=== PATIENT | male | born 1955 | race Caucasian/White ===

== ENCOUNTER → 2018-03-12 | Outpatient (CLI) | payer OTHER | LOC: BMCIMAGING 12:42 | PROVIDERS: ATTEND Orthopaedic Surgery | DX: M17.11 Unilateral primary osteoarthritis, right knee (principal) ==

== ENCOUNTER → 2018-03-24 | Outpatient (CLI) | payer OTHER | LOC: CIMAGING 10:20 | PROVIDERS: ATTEND Orthopaedic Surgery | DX: Z01.818 Encounter for other preprocedural examination (principal); M17.11 Unilateral primary osteoarthritis, right knee ==

== ENCOUNTER 2018-04-24 05:46 | Inpatient (IN) | payer OTHER ==
[2018-04-24] MEDS ORDERED: ROPIVACAINE 0.2% 80 MG, EPINEPHrine 0.2 MG, KETOROLAC TROMETHAMINE 30 MG, morphINE 10 M... IU ONE (06:00)
[2018-04-24] MEDS ORDERED: TRANEXAMIC ACID 1,000 MG in NS 100 ML IV ONE (06:00)
[2018-04-24] MEDS ORDERED: ACETAMINOPHEN 325 MG TAB PO ONE (06:10)
[2018-04-24] MEDS ORDERED: ceFAZolin 2 GM/DEXTROSE 100 ML IV ONE (06:10)
[2018-04-24] MEDS ORDERED: FAMOTIDINE 20 MG TAB PO ONE (06:10)
[2018-04-24] MEDS ORDERED: LR 1,000 ML IV ONE (06:12)
[2018-04-24] MEDS ORDERED: LIDOCAINE 1% 2 ML INJ ID PRN (06:12)
[2018-04-24] MEDS ORDERED: MIDAZOLAM 2 MG/2 ML VIAL IVP ONE (06:31)
--- NOTE | 2018-04-24 06:31 | PDANEPAE ---
ANE Past Medical History - Cardiovascular History Hx Hypertension: Yes Hx Arrhythmias: Yes Hx Chest Pain: No Hx Coronary Artery / Peripheral Vascular Disease: No Hx CHF / Valvular Disease: No Hx Palpitations: No Cardiovascular History Comment: occ sinus tach. loop recorder placed 11/2017. followed by [facility] cardiology- will obtain records. Records reviewed. History of sinus tachycardia. No afib. Cardiac clearance given and no need for stress test per spot washer. - Pulmonary History Hx COPD: No Hx Asthma/Reactive Airway Disease: No Hx Recent Upper Respiratory Infection: No Hx Oxygen in Use at Home: No Hx Sleep Apnea: No Sleep Apnea Screening Result - Last Documented: Positive - Neurologic History Hx Cerebrovascular Accident: No Hx Seizures: No Hx Dementia: No - Endocrine History Hx Diabetes: Yes Endocrine History Comment: type 2 - Renal History Hx Renal Disorders: Yes Renal History Comment: hx of prostate ca - Liver History Hx Hepatic Disorders: No - Neurological & Psychiatric Hx Hx Neurological and Psychiatric Disorders: No - Cancer History Hx Cancer: Yes Cancer History Comment: prostate ca 2016 with radiation - Congenital Disorder History Hx Congenital Disorders: No - GI History Hx Gastrointestinal Disorders: Yes Gastrointestinal History Comment: occ reflux- uses omeprazole - Other Health History Other Health History: wears glasses. arthritis. dry skin d/t winter - Chronic Pain History Chronic Pain: Yes (right knee) - Surgical History Prior Surgeries: loop recorder implanted- 11/29/2017. 10/13/10 left TKA with [place]. right knee scope 2005 for meniscus tear. left shoulder scope 2003. RK surgery- bilaterally in the mid s. wisdom teeth extracted after college. tonsillectomy in 1960 ANE Review of Systems Review of Systems: - Exercise capacity METS (RN): 4 METS ANE Patient History - Allergies Allergies/Adverse Reactions: No Known Allergies Allergy (Verified 04/24/18 06:17) - Home Medications Home Medications: Calcium Carbonate [Oyster Shell Calcium 500 mg (*)] 500 mg PO DAILY18 04/11/18 [ Last Taken Unknown] Carvedilol Phosphate [Coreg Cr] 80 mg PO DAILY 04/11/18 [Last Taken Unknown] Folic Acid [Folic Acid 1 MG (*)] 1 mg PO DAILY 04/11/18 [Last Taken Unknown] Herbals/Supplements -Info Only 1 ea PO DAILY 04/11/18 [Last Taken Unknown] Hydrochlorothiazide [HCTZ (*)] 25 mg PO DAILY 04/11/18 [Last Taken Unknown] Liraglutide [Victoza 3-Ganesh] 1.8 mg SQ DAILY18 04/11/18 [Last Taken Unknown] Melatonin [Melatonin 5 mg] 5 mg PO HS PRN 04/11/18 [Last Taken Unknown] Multivitamins [Multivitamin (*)] 1 each PO DAILY 04/11/18 [Last Taken Unknown] Naproxen Sodium [Aleve 220 MG (*)] 440 mg PO DAILY 04/11/18 [Last Taken Unknown] Morton-3 Fatty Acids [Fish Oil 1000 mg (*)] 1,000 mg PO DAILY 04/11/18 [Last Taken Unknown] Omeprazole 20 mg PO DAILY18 04/11/18 [Last Taken Unknown] Rosuvastatin Calcium [Crestor 10mg (RX)] 5 mg PO DAILY18 04/11/18 [Last Taken Unknown] Testapril 1 each SQ .3-4XYEAR 04/11/18 [Last Taken Unknown] cycloSPORINE 0.05% [Restasis Opht Drops(*)] 1 drop EACHEYE BID 04/11/18 [Last Taken Unknown] metFORMIN HCL [Glucophage 1000 mg] 1,000 mg PO BIDMEAL 04/11/18 [Last Taken Unknown] - Smoking Hx Smoking Status: Former smoker - Family Anes Hx Family Hx Anesthesia Complications: none ANE Labs/Vital Signs - Vital Signs Height: 180.34 cm Weight: 78.471 kg ANE Physical Exam - Airway Neck exam: FROM Mallampati Score: Class 2 Mouth exam: normal dental/mouth exam - Pulmonary Pulmonary: no respiratory distress, no rales or rhonchi, clear to auscultation - Cardiovascular Cardiovascular: regular rate and rhythym, no murmur, rub, or gallop - ASA Status ASA Status: III ANE Anesthesia Plan Anesthesia Plan: spinal
[2018-04-24] MEDS ORDERED: HYDROmorphONE/DILAUDID 2 MG/ML INJ IVP PRN (06:32)
[2018-04-24] MEDS ORDERED: ONDANSETRON 4 MG/2 ML VIAL IVP PRN ×2 (06:32→08:51)
[2018-04-24] MEDS ORDERED: NALOXONE HCL 0.4 MG/ML INJ IVP PRN (06:32)
[2018-04-24] MEDS ORDERED: LR 500 ML IV PRN (06:32)
[2018-04-24] MEDS ORDERED: MEPERIDINE 25 MG/0.5 ML AMP IVP PRN (06:32)
[2018-04-24] MEDS ORDERED: oxyCODONE IR 5 MG TAB PO PRN ×2 (06:32→08:51)
[2018-04-24] MEDS ORDERED: PHENYLEPHRINE HCL 100 MCG/ML SYR IVP PRN (06:32)
[2018-04-24] MEDS ORDERED: METOCLOPRAMIDE 10 MG/2 ML VIAL IVP PRN ×2 (06:32→08:51)
[2018-04-24] MEDS ORDERED: PROMETHAZINE HCL 25 MG/ML INJ IVP PRN ×2 (06:32→08:51)
--- NOTE | 2018-04-24 06:34 | PDIAF ---
- Diagnosis Diagnosis: right knee djd Code Status: Full Code - Medication Management Discharge Medications: electronically signed and located in the Home Medication List. - Orders Services needed: Home Care, Physical Therapy Home Care Face to Face: I certify that this patient was under my care and that I had the required [id number] encounter meeting the encounter requirements on the discharge day. My findings support the fact that the patient is homebound as defined in Home Care Face to Face Continued: CMS Chapter 7 Medicare Benefits Manual 30.1.1 , The condition of the patient is such that there exists a normal inability to leave home and consequently, leaving home would require a considerable and taxing effort. Diet Recommendation: no restrictions on diet Diet Texture: Regular Texture Diet Additional Instructions: TOTAL JOINT ARTHROPLASTY DISCHARGE INSTRUCTIONS 1. Your surgeon follows the [facility] protocol for reducing your risk of DVT (blood clots) following surgery. Medication will be ordered to prevent blood clots. A sudden increase in calf pain and/or swelling could indicate a blood clot in your leg. If this occurs, please call your surgeon or his/her call center assistant. An ultrasound of the leg may be necessary to diagnose a blood clot. If you have conditions that make you a higher risk for blood clots, your surgeon may use more aggressive ways to prevent them. Notify your surgeon if you think you are a high risk for blood clots. 2. Wear your white surgical stockings (HERNANDO hose) for 2 weeks. This decreases your swelling and may help prevent blood clots. It is ok to remove HERNANDO hose at night time to give your legs a break. 3. Swelling and bruising in the surgical leg is common. If you feel that it is excessive, please notify your surgeon. 4. Elevate your surgical leg with the ankle above the hip several times every day. Please keep the leg straight when you elevate by putting pillows under your foot. Do not put pillows under your knee. This will make being able to fully straighten more difficult. This is uncomfortable, but try to do it as much as possible. 5. For total knee replacements use compressive wrap on your knee for 3-5 days after surgery, then you can discontinue it. 6. Use a walker or crutches for 1-2 weeks. Progress your weight-bearing as tolerated. You may start to use a cane when you feel stable and safe. 7. You will receive physical therapy instructions in the hospital. Continue those exercises at home. There are additional exercises in the total joint booklet you were given before surgery. Outpatient physical therapy will begin 7- 10 days after surgery. Please schedule this in advance. 8. Use ice on your knee at least 3-5 times every day for 30 minutes. This helps reduce pain and swelling. Also use it at night before falling asleep. 9. Leave your surgical dressing in place for 2 weeks. Your dressing is water resistant, but not waterproof. Cover it with Saran Wrap or Akoii-g-Yaka before showering. You may shower as soon as you feel safe entering a shower. If you notice bleeding from your incision 2 or 3 days after surgery, please notify your surgeon. 10. Due to narcotics, decreased activity and altered diet, most patients experience constipation after surgery. Use zduy-ipo-dnoxiid stool softeners while you are on narcotics. 11. You may drive a car when you are comfortable bearing weight, have good muscular control of your leg and are off narcotics. This usually occurs 2-4 weeks after surgery, depending on which leg was operated on. 12. If there are questions not addressed here, please refer the [facility] book given for more information. If you still have questions, please contact your surgeon s office. 13. If you have a life-threatening emergency, please call 911 and go to the emergency room immediately. For non-life threatening emergencies, please call your physicians office for advice before going to the emergency room. - Follow Up Care Current Providers and Referrals: EB DAWSON [Other] Leonel Goode MD [Medical Doctor] -
--- NOTE | 2018-04-24 06:34 | PDHPUP ---
History & Physical Update H&P update statement: This history and physical update is based on an assessment of the patient which was completed after admission or registration (within 24 hours), but prior to the surgery/procedure. H&P update: no change in patient's condition since H&P completed
[2018-04-24] MEDS ORDERED: ONDANSETRON 4 MG/2 ML VIAL ONE (06:35)
[2018-04-24] MEDS ORDERED: THROMBIN (BOVINE) 5,000 UNIT VIAL TP ONE (06:35)
[2018-04-24] MEDS ORDERED: LIDOCAINE 2% 5 ML SDV ONE (06:35)
[2018-04-24] MEDS ORDERED: ROPIVACAINE HCL 150 MG/30 ML INJ ONE (06:35)
[2018-04-24] MEDS ORDERED: CALCIUM CHLORIDE 1 GM/10 ML INJ ONE (06:35)
[2018-04-24] MEDS ORDERED: PROPOFOL 200 MG/20 ML VIAL ONE (06:35)
[2018-04-24] MEDS ORDERED: ceFAZolin 1 GM/5 ML SYR ONE (06:36)
[2018-04-24] MEDS ORDERED: PROPOFOL/EMULSION 500 MG/50 ML BOTTLE IV ONE ×3 (06:36→08:28)
[2018-04-24] MEDS ORDERED: BUPIVACAINE/DEXTROSE 7.5MG/ML 2 ML SPINAL AMP SP ONE (06:48)
[2018-04-24] MEDS ORDERED: PHENYLEPHRINE HCL 100 MCG/ML SYR ONE ×2 (08:17→08:26)
[2018-04-24] MEDS ORDERED: LACTULOSE 20 GM/30 ML UDCUP PO PRN (08:51)
[2018-04-24] MEDS ORDERED: DIPHENOXYLATE/ATROPINE LOMOTIL 1 TAB PO PRN (08:51)
[2018-04-24] MEDS ORDERED: CYCLOBENZAPRINE 10 MG TAB PO PRN (08:51)
[2018-04-24] MEDS ORDERED: ONDANSETRON DISINTEGRATING 4 MG TAB PO PRN (08:51)
[2018-04-24] MEDS ORDERED: PROMETHAZINE HCL 25 MG SUPPR PR PRN (08:51)
[2018-04-24] MEDS ORDERED: POLYETHYLENE GLYCOL 3350 17 GM PKT PO PRN (08:51)
[2018-04-24] MEDS ORDERED: BISACODYL 10 MG SUPP PR PRN (08:51)
[2018-04-24] MEDS ORDERED: TEMAZEPAM 15 MG CAP PO PRN (08:51)
[2018-04-24] MEDS ORDERED: diphenhydrAMINE 25 MG CAP PO PRN (08:51)
[2018-04-24] MEDS ORDERED: MAGNESIUM HYDROXIDE 30 ML UDCUP PO PRN (08:51)
--- NOTE | 2018-04-24 08:51 | POSTOPPROG ---
Post Op Note Date of Operation: 04/24/18 Surgeon: Leonel Goode Relief Map Modeler: violeta Anesthesiologist: michelle ___ Anesthesia: Spinal Pre-op Diagnosis: right knee djd Post-op Diagnosis: same Indication: same Procedure: right tka Inf/Abcess present in the surg proc area at time of surgery?: No Depth: Deep Incisional (Fascial) EBL: 100-500
[2018-04-24] MEDS ORDERED: LR 1,000 ML IV SCH (09:00)
[2018-04-24] MEDS: fentaNYL 100 MCG/2 ML INJ IVP PRN ×3 (09:34→10:49)
[2018-04-24] MEDS ORDERED: fentaNYL 100 MCG/2 ML INJ ONE ×2 (09:34→10:46)
--- NOTE | 2018-04-24 10:20 | POSTANESTH ---
Post Anesthetic Evaluation Cardiovascular Status: Normal, Stable Respiratory Status: Normal, Stable Level of Consciousness/Mental Status: Can Participate in Eval Pain Control: Adequate, Prn Tx Ordered Nausea/Vomiting Control: Adequate, Prn Tx Ordered Complications Possibly Related to Anesthesia: Other, See Comments (Mild nose bleed from nasal trumbet placed during case.)
[2018-04-24] MEDS ORDERED: HYDROmorphONE/DILAUDID 2 MG/ML INJ ONE (10:47)
[2018-04-24] MEDS: ACETAMINOPHEN 325 MG TAB PO SCH ×2 (13:11→18:40)
--- NOTE | 2018-04-24 13:59 | PDMN ---
Medical Necessity Medical necessity: [facility] S700 knee arthroplasty: OP: TKA anticipate > 2 MN, pt with + GHAZALA, HTN, HX arrhythmias DM2, hx prostate Ca. AUTH # [id number] FOR CPT 29708. DONE IN PT
[2018-04-24] MEDS: CARVEDILOL CR 40 MG CAP PO SCH (14:05)
[2018-04-24] MEDS: cycloSPORINE 0.05% 30 DROPERETTE/BOX EACHEYE SCH (14:06)
[2018-04-24] MEDS: SENNOSIDES/DOCUSATE SODIUM TAB PO SCH ×2 (14:07→21:03)
[2018-04-24] MEDS: HYDROCHLOROTHIAZIDE 25 MG TAB PO SCH (14:17)
[2018-04-24] MEDS: TRANEXAMIC ACID 650 MG TAB PO SCH ×2 (14:18→22:33)
[2018-04-24] MEDS: ceFAZolin 2 GM/DEXTROSE 100 ML IV SCH ×2 (14:18→22:33)
[2018-04-24] MEDS ORDERED: ROSUVASTATIN CALCIUM 10 MG TAB PO SCH (18:00)
[2018-04-24] MEDS ORDERED: LIRAGLUTIDE 1.8 MG SQ SCH (18:00)
[2018-04-24] MEDS ORDERED: PANTOPRAZOLE SODIUM 40 MG TAB PO SCH (18:00)
[2018-04-24] MEDS: metFORMIN HCL 500 MG TAB PO SCH (18:40)
[2018-04-24] MEDS: FAMOTIDINE 20 MG TAB PO SCH (20:51)
[2018-04-24] MEDS: ASPIRIN 325 MG TAB PO SCH (22:34)
[2018-04-25] MEDS: cycloSPORINE 0.05% 30 DROPERETTE/BOX EACHEYE SCH ×2 (00:10→10:15)
[2018-04-25] MEDS: ACETAMINOPHEN 325 MG TAB PO SCH ×2 (01:04→05:29)
[2018-04-25] MEDS: TRANEXAMIC ACID 650 MG TAB PO SCH (05:30)
--- NOTE | 2018-04-25 06:40 | PDIAF ---
- Diagnosis Diagnosis: right knee djd Code Status: Full Code - Medication Management Discharge Medications: electronically signed and located in the Home Medication List. - Orders Services needed: Home Care, Physical Therapy Home Care Face to Face: I certify that this patient was under my care and that I had the required [id number] encounter meeting the encounter requirements on the discharge day. My findings support the fact that the patient is homebound as defined in Home Care Face to Face Continued: CMS Chapter 7 Medicare Benefits Manual 30.1.1 , The condition of the patient is such that there exists a normal inability to leave home and consequently, leaving home would require a considerable and taxing effort. Diet Recommendation: no restrictions on diet Diet Texture: Regular Texture Diet Additional Instructions: TOTAL JOINT ARTHROPLASTY DISCHARGE INSTRUCTIONS 1. Your surgeon follows the [facility] protocol for reducing your risk of DVT (blood clots) following surgery. Medication will be ordered to prevent blood clots. A sudden increase in calf pain and/or swelling could indicate a blood clot in your leg. If this occurs, please call your surgeon or his/her assistant golf course superintendent. An ultrasound of the leg may be necessary to diagnose a blood clot. If you have conditions that make you a higher risk for blood clots, your surgeon may use more aggressive ways to prevent them. Notify your surgeon if you think you are a high risk for blood clots. 2. Wear your white surgical stockings (HERNANDO hose) for 2 weeks. This decreases your swelling and may help prevent blood clots. It is ok to remove HERNANDO hose at night time to give your legs a break. 3. Swelling and bruising in the surgical leg is common. If you feel that it is excessive, please notify your surgeon. 4. Elevate your surgical leg with the ankle above the hip several times every day. Please keep the leg straight when you elevate by putting pillows under your foot. Do not put pillows under your knee. This will make being able to fully straighten more difficult. This is uncomfortable, but try to do it as much as possible. 5. For total knee replacements use compressive wrap on your knee for 3-5 days after surgery, then you can discontinue it. 6. Use a walker or crutches for 1-2 weeks. Progress your weight-bearing as tolerated. You may start to use a cane when you feel stable and safe. 7. You will receive physical therapy instructions in the hospital. Continue those exercises at home. There are additional exercises in the total joint booklet you were given before surgery. Outpatient physical therapy will begin 7- 10 days after surgery. Please schedule this in advance. 8. Use ice on your knee at least 3-5 times every day for 30 minutes. This helps reduce pain and swelling. Also use it at night before falling asleep. 9. Leave your surgical dressing in place for 2 weeks. Your dressing is water resistant, but not waterproof. Cover it with Saran Wrap or Lxust-y-Mvlj before showering. You may shower as soon as you feel safe entering a shower. If you notice bleeding from your incision 2 or 3 days after surgery, please notify your surgeon. 10. Due to narcotics, decreased activity and altered diet, most patients experience constipation after surgery. Use edgu-arr-ztajour stool softeners while you are on narcotics. 11. You may drive a car when you are comfortable bearing weight, have good muscular control of your leg and are off narcotics. This usually occurs 2-4 weeks after surgery, depending on which leg was operated on. 12. If there are questions not addressed here, please refer the [facility] book given for more information. If you still have questions, please contact your surgeon s office. 13. If you have a life-threatening emergency, please call 911 and go to the emergency room immediately. For non-life threatening emergencies, please call your physicians office for advice before going to the emergency room. - Follow Up Care Current Providers and Referrals: EB DAWSON [Other] Leonel Goode MD [Medical Doctor] -
--- NOTE | 2018-04-25 06:41 | SOAPPROG ---
SOAP Progress Note Assessment/Plan: Assessment: s/p right tka Plan:d/c home stable dvt precautions f/u at two weeks 04/25/18 06:40 Subjective: no pain no cp or sob reji po Objective: Vital Signs Temp Pulse Resp BP Pulse Ox 36.8 C 95 17 139/80 H 93 04/25/18 04:00 04/25/18 04:00 04/25/18 04:00 04/25/18 04:00 04/25/18 04:00 Laboratory Results 04/25/18 04:17 04/24/18 04/25/18 04/26/18 05:59 05:59 05:59 Intake Total 2650 Output Total 1900 Balance 750 dressing intact intact pf,df,ehl toes warm and pink neg homans anuradha xrays stable alignment,, no fx or lucency ICD10 Worksheet Patient Problems: Problems Problem Status Onset Arthritis of knee Acute - ICD10 Problem Qualifiers (1) Arthritis of knee
[2018-04-25] MEDS: ASPIRIN 325 MG TAB PO SCH (10:02)
[2018-04-25] MEDS: CARVEDILOL CR 40 MG CAP PO SCH (10:06)
[2018-04-25] MEDS: metFORMIN HCL 500 MG TAB PO SCH (10:06)
[2018-04-25] MEDS: HYDROCHLOROTHIAZIDE 25 MG TAB PO SCH ×2 (10:07→10:11)
[2018-04-25] MEDS: SENNOSIDES/DOCUSATE SODIUM TAB PO SCH (10:08)
[2018-04-25] MEDS: FAMOTIDINE 20 MG TAB PO SCH (10:12)
[2018-04-25 10:17] VITALS: BP 139/84
--- NOTE | 2018-04-25 12:00 | ASMTLACE ---
LACE Length of stay for Answers: 2 days current admission Acuity / Level of Answers: Yes Care: Did the patient have an inpatient admission? Comorbidities - select Answers: Diabetes (uncontrolled or all that apply controlled) Opioid dependence / Chronic pain Other Notes: HTN; Hx of prostate cancer # of Emergency department Answers: 0 visits in the last 6 months Score: 11 Date Signed: 04/25/2018 11:59 AM Electronically Signed By:TAJ Roe
--- NOTE | 2018-04-25 12:03 | ASDISCHSUM ---
Discharge Information Plan Status:Home with Home Health Medically Cleared to Leave: Discharge Date:04/25/2018 11:27 AM CM D/C Disposition:Home Health Service ADT D/C Disposition:Home Health Service Projected Discharge Date:04/25/2018 11:00 AM Transportation at D/C: Discharge Delay Reason: Follow-Up Date:04/25/2018 11:00 AM Discharge Slot: Final Diagnosis: Placement Information Referral Type:*Home Health Care Services Referral ID:[id number] Provider Name:[facility]) Address 1:[address] [facility] Address 2:[facility] [address] City:[place] Selection Factors: State:[place] Patient Contact Information Contact Name:SAMUEL Relationship: Address:[address] [facility] City:[facility] Phone: State/Zip Code:[place] [address] Email: Financial Information Financial Class:HMO and PPO Plans Primary Plan Desc:[employer] Primary Plan Number:[id number] Secondary Plan Desc: Secondary Plan Number: Assessment Information LACE LACE Length of stay for Answers: 2 days current admission Acuity / Level of Answers: Yes Care: Did the patient have an inpatient admission? Comorbidities - select Answers: Diabetes (uncontrolled or all that apply controlled) Opioid dependence / Chronic pain Other Notes: HTN; Hx of prostate cancer # of Emergency department Answers: 0 visits in the last 6 months Score: 11 Date Signed: 04/25/2018 11:59 AM Electronically Signed By:TAJ oRe [facility] CM Progress Note CM Note CM Note Notes: Pt medically stable for d/c with [facility]. Orders sent in [employer]. Date Signed: 04/25/2018 12:01 PM Electronically Signed By:TAJ Roe Intervention Information
--- NOTE | 2018-04-27 23:49 | GOP ---
DATE OF OPERATION: 04/24/2018 SURGEON: Leonel Goode MD CERTIFIED PHYSICIAN ASSISTANT: Norris Hassan, PULP BEATER, CLINICAL FELLOW, surgical services tech, who was a medical necessity for the entire ty of the case. PREOPERATIVE DIAGNOSIS: Right knee degenerative joint disease. POSTOPERATIVE DIAGNOSIS: Right knee degenerative joint disease. PROCEDURE PERFORMED: Right total knee arthroplasty, MAKOplasty. FINDINGS: SPECIMENS: To Pathology, the bony cuts. INDICATIONS: The patient is a 63-year-old gentleman with end-stage arthritis to his right knee. Cli nical and radiographic features consistent with this. He has failed all attempts at conservative man agement. I have, therefore, recommended operative intervention with total knee replacement. I outli hallie the surgical procedure, risks, benefits, and alternatives. He wished to proceed. Written consen t was signed and placed in the patient's chart. DESCRIPTION OF PROCEDURE: The patient was in the preanesthesia area. The right knee clearly demarca laz as the operative site with indelible marker. He was given 2 g of Ancef intravenously en route to the operative suite. In the OR, a spinal anesthetic was placed. The right knee was sterilely prepp ed and draped in usual fashion. Appropriate time-out procedure was carried out. The limb was exsang uinated with an Esmarch bandage. Tourniquet inflated to 275 mmHg. A standard anterior midline incision was made. Thick subcutaneous flaps were elevated, followed by a medial parapatellar arthrotomy. Subperiosteal elevation was carried out to the mid coronal plane. Retractors were placed. There was tricompartmental arthritis. Decision was made to proceed. Two pi ns were then placed from medial to lateral across the distal femur, and the femoral reference array a ffixed, followed by femoral check point. A separate percutaneous incision was made over the mid tibi a. 2 pins were placed, followed by the tibial reference array. A tibial check point was placed. Al l bony landmarks were entered into the computer. The knee was balanced through the flexion-extension arc with the MAKOplasty software, and a resection was made for a size 5 femur, size 6 tibia, a 6 x 9 mm polyethylene spacer. Trial was then selected as the final implant. This allowed full extension and flexion of the knee. During the femoral cuts, the cutting arm of the MAKOplasty robot spontaneou sly disassembled, and the new cutting arm were affixed in a sterile fashion and resequenced with the MAKOplasty software. The femur demonstrated slight movement, and, therefore, the decision was made t o proceed with cementation of the femur and press-fit tibia. The trial components were withdrawn. T he tibia was then pressed into position and confirmed to be fully seated. The femur was then thoroug hly cleansed and dried with pulsatile lavage solution and cemented in place. The marginal cement was removed. Once the cement had fully dried, a 6 x 9 mm polyethylene spacer had been placed, confirmed to be fully seated. This allowed full extension of the knee, flexion to 125 degrees without instabi lity throughout the flexion-extension arc. The patella was then everted and cut in a freehand cuttin g technique. Drill holes were made for a size 38 mm patella, and a press-fit [address] d. This tracked centrally through the flexion-extension arc without pressure upon the patella. The wound was copiously irrigated. The capsular tissue injected with a joint cocktail of ropivacaine, mo rphine, Toradol, and epinephrine. The medial parapatellar arthrotomy closed using #1 Ethibond suture . The knee was then instilled with platelet-rich plasma. Subcutaneous tissue closed using 2-0 Monoc ryl and a ZipLine closure of the skin. A sterile dressing was applied. The patient was awakened, ex tubated, taken to recovery room in good, stable condition. TOTAL TOURNIQUET TIME: 65 minutes. COMPLICATIONS: None. IMPLANTS: [place] [employer] posterior stabilized femoral component size 5, size 6 tibia, size 6 x 9 mm polyethylene spacer, and a 38 mm metal-backed patella. DISPOSITION: To the recovery room, then the floor. /[id number]/MODL
--- NOTE | 2018-04-27 23:49 | GDS ---
SPECIAL INVESTIGATOR: None. ADMISSION DIAGNOSIS: Right knee degenerative joint disease. DISCHARGE DIAGNOSIS: Right knee degenerative joint disease. PROCEDURE: Right total knee arthroplasty. BRIEF HISTORY OF PRESENT ILLNESS: The patient is a 63-year-old gentleman, who presents for elective right total knee replacement. He has end-stage arthritis. He has failed all attempts at conservativ e management. He understands the risks, benefits, alternatives, and wishes to proceed. Written cons ent was signed and placed upon the patient's chart. HOSPITAL COURSE: The patient was admitted to the hospital floor after an uncomplicated total knee ar throplasty. He tolerated the procedure well. At the time of discharge, he is tolerating an oral diet. Pain was well controlled on oral medicines. He is voiding without difficulty. Dressing is clean, dry, and intact. X-rays are stable with spencer omic alignment. There is no fracture or lucency. DISCHARGE ACTIVITY: He is to keep the dressing clean, dry, and intact. FOLLOWUP: In 2 weeks. Seek attention for increasing redness, swelling, drainage, discharge, or othe r focal complaint. /[id number]/MODL
== END 2018-04-25 11:27 | disposition home health service (06) | DRG 470 ==
LOC: F3N 05:46
PROVIDERS: ADMIT Orthopaedic Surgery; ATTEND Orthopaedic Surgery
DX: M17.11 Unilateral primary osteoarthritis, right knee (principal); I10 Essential (primary) hypertension; E78.5 Hyperlipidemia, unspecified; E11.9 Type 2 diabetes mellitus without complications; I25.10 Atherosclerotic heart disease of native coronary artery without angina pectoris; Z85.46 Personal history of malignant neoplasm of prostate
CPT/HCPCS: 97116-GP; 97161-GP; 97165-GO; 97535-GO; C1713; J0171; J0690; J1170; J1885; J2250; J2270; J2370; J2405; J2704; J2795; J3010

== ENCOUNTER → 2018-06-05 | Outpatient (CLI) | payer OTHER | LOC: BMCIMAGING 10:01 | PROVIDERS: ATTEND Physician Assistant | DX: Z47.1 Aftercare following joint replacement surgery (principal); Z96.651 Presence of right artificial knee joint ==

== ENCOUNTER → 2018-07-16 | Outpatient (CLI) | payer OTHER | LOC: BMCIMAGING 10:37 | PROVIDERS: ATTEND Orthopaedic Surgery | DX: Z09 Encounter for follow-up examination after completed treatment for conditions other than malignant neoplasm (principal); Z96.651 Presence of right artificial knee joint ==

== ENCOUNTER → 2018-10-15 | Outpatient (CLI) | payer OTHER | LOC: BMCIMAGING 09:45 | PROVIDERS: ATTEND Orthopaedic Surgery | DX: Z47.1 Aftercare following joint replacement surgery (principal); Z96.651 Presence of right artificial knee joint ==